=== PATIENT | female | born 1995 | race American Indian/Alaskan Native ===

== ENCOUNTER 2018-11-22 08:31 | Emergency (ER) | payer OTHER ==
[2018-11-22 09:04] VITALS: BP 111/75
[2018-11-22] MEDS ORDERED: TYLENOL PO ONE (09:24)
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
--- NOTE | 2018-11-22 10:36 | XRay Report ---
LUMBOSACRAL SPINE, 3 VIEWS: History: Back pain Findings: The vertebral bodies, disk spaces and posterior elements are intact. No compression deformity or malalignment. The SI joints are symmetric and unremarkable. Impression: 1. No evidence for acute injury to the lumbar spine.
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
== END 2018-11-22 10:49 | disposition home or self-care (01) ==
LOC: ED 08:31
DX: M54.5 Low back pain (principal); R25.2 Cramp and spasm; M54.2 Cervicalgia; V49.49XA Driver injured in collision with other motor vehicles in traffic accident, initial encounter; Y93.89 Activity, other specified; Y92.488 Other paved roadways as the place of occurrence of the external cause; Y99.8 Other external cause status
CPT/HCPCS: 72040; 72114; 99283